=== PATIENT | female | born 1985 | race Caucasian/White ===

== ENCOUNTER 2024-12-31 15:43 | Emergency (ER) | payer OTHER ==
[~2024-12-31] VITALS: Ht 165.1 cm; Wt 70.0 kg
[~2024-12-31 15:43] MED LIST: CITALOPRAM40 M1; SPRINTEC 2828 DAY PO
[2024-12-31 17:36] VITALS: BP 121/70
== END 2024-12-31 17:28 | disposition home or self-care (01) | DRG 605 ==
LOC: ED 15:43
DX: S60.031A Contusion of right middle finger without damage to nail, initial encounter (principal); W20.8XXA Other cause of strike by thrown, projected or falling object, initial encounter; Y93.E6 Activity, residential relocation; Y92.009 Unspecified place in unspecified non-institutional (private) residence as the place of occurrence of the external cause